=== PATIENT | female | born 1960 | race Caucasian/White ===

== ENCOUNTER 2021-08-17 10:21 | Inpatient (IN) | payer MEDICARE, OTHER ==
[2021-08-17] MEDS ORDERED: Ondansetron PF 4 MG/2 ML Vial ONE ×5 (12:07→16:25)
[2021-08-17] MEDS ORDERED: Morphine 4 MG/ML VIAL ONE ×3 (12:07→15:26)
[2021-08-17 12:12] LABS: Hemoglobin 12.1 g/dL (12.0-16.0); Mean Corpuscular HGB CONC 32.5 g/dL (32.0-36.0); Mean Corpuscular Hemoglobin 30.9 pg (27.0-31.0); Mean Corpuscular Volume 95.1 fL (78.0-98.0); RBC Distribution Width 11.7 % (11.5-14.5); Red Blood Cell (RBC) Count 3.91 mill/uL (4.20-5.40); White Blood Cell (WBC) Count 24.3 thou/uL (4.8-10.8)
[2021-08-17 12:29] LABS: ALT (SGPT) 8 U/L (8-55); AST (SGOT) 15 U/L (5-34); Albumin 3.7 g/dL (3.5-5.0); Alkaline Phosphatase 127 U/L (40-110); Anion Gap 16 mmol/L (10-20); BUN (Urea Nitrogen) 40 mg/dL (9.8-20.1); Bilirubin, Total 0.7 mg/dL (0.2-1.2); Calc. Creatinine Clearance 0 mL/min (70-130); Calcium 9.6 mg/dL (7.8-10.44); Carbon Dioxide 24 mmol/L (22-29); Chloride 102 mmol/L (98-107); Globulin 3.7 g/dL (2.4-3.5); Glucose 77 mg/dL (70-105); Lipase 9 U/L (8-78); Potassium 3.8 mmol/L (3.5-5.1); Protein, Total 7.4 g/dL (6.0-8.3); Sodium 138 mmol/L (136-145)
[2021-08-17 12:36] LABS: Band 19 % (5-11); Lymphocytes 4 % (21-51); MDiff Complete? YES; Mean Platelet Volume 9.5 fL (7.4-10.4); Monocytes 2 % (0-10); Neutrophil 75 % (42-75); Platelet Count 113 thou/uL (130-400); Platelet Morphology Comment Appears Decreased; Polychromasia SLIGHT = 2-3 cells (100X) (0-2/hpf)
[2021-08-17 14:15] LABS: Bilirubin Negative (Negative); Blood, Urine 3+ (Negative); Clarity Turbid (Clear); Glucose, Urine (Dipstick) Normal (Negative); Ketone, Urine Trace mg/dL (Negative); Leukocyte 500 Leu/uL (Negative); Nitrite 1+ (Negative); Protein, Urine (Dipstick) 70 mg/dL (Neg-Trace); RBC/HPF 21-50 HPF (0-3); Specific Gravity, Urine 1.049 (1.002-1.036); Urobilinogen Normal mg/dL (Less than 2); pH, Urine 6.5 (5.0-9.0)
[2021-08-17 14:17] LABS: Bacteria/HPF 4+ HPF (None Seen); WBC/HPF Greater than 50 HPF (0-3)
[2021-08-17] MEDS ORDERED: cefTRIAXone\\ROCEPHIN 1 GM VIAL ONE (15:12)
[2021-08-17] MEDS ORDERED: Lorazepam 2 MG/ML VIAL ONE (15:26)
[2021-08-17] MEDS ORDERED: Iopamidol 15 ML ONE (15:28)
[2021-08-17] MEDS ORDERED: fentaNYL Citrate/PF 100 MCG/2 ML SYRINGE ONE (15:30)
[2021-08-17 16:24] LABS: SARS-CoV-2 NAA Rapid Test Not Detected (NotDetected)
[2021-08-17] MEDS ORDERED: Dexamethasone 20 MG/5 ML VIAL ONE (16:25)
[2021-08-17] MEDS ORDERED: Ketorolac Tromethamine 30 MG/ML VIAL ONE (16:25)
[2021-08-17] MEDS ORDERED: PROPOFOL 200 MG/20 ML VIAL ONE (16:25)
[2021-08-17] MEDS ORDERED: Succinylcholine 200 MG/10 ml SYRINGE FS ONE (16:25)
[2021-08-17] MEDS ORDERED: Lidocaine 1% PF 5 ML VIAL ONE (16:25)
[2021-08-17] MEDS ORDERED: Fentanyl 100 MCG/2 ML VIAL ONE ×3 (16:56→18:49)
[2021-08-17] MEDS ORDERED: cefTRIAXone\\ROCEPHIN 1 GM in Sodium Chloride 0.9% 100 ML IVPB SCH (18:30)
[2021-08-17] MEDS ORDERED: Ondansetron PF 4 MG/2 ML Vial IVP PRN (21:46)
[2021-08-17] MEDS ORDERED: Acetaminophen 325 MG TAB PO PRN (21:46)
[2021-08-17 22:51] LABS: Hemoglobin 11.5 g/dL (12.0-16.0); Mean Corpuscular HGB CONC 32.1 g/dL (32.0-36.0); Mean Corpuscular Hemoglobin 30.9 pg (27.0-31.0); Mean Corpuscular Volume 96.2 fL (78.0-98.0); Mean Platelet Volume 9.6 fL (7.4-10.4); Platelet Count 122 thou/uL (130-400); Red Blood Cell (RBC) Count 3.72 mill/uL (4.20-5.40); White Blood Cell (WBC) Count 19.4 thou/uL (4.8-10.8)
[2021-08-17] MEDS: Sodium Chloride 0.9% 1,000 ML IV SCH (23:07)
[2021-08-17 23:08] LABS: Band 16 % (5-11); Lymphocytes 8 % (21-51); MDiff Complete? YES; Neutrophil 76 % (42-75)
[2021-08-17 23:11] LABS: ALT (SGPT) 7 U/L (8-55); AST (SGOT) 14 U/L (5-34); Albumin 3.6 g/dL (3.5-5.0); Alkaline Phosphatase 131 U/L (40-110); Anion Gap 16 mmol/L (10-20); BUN (Urea Nitrogen) 35 mg/dL (9.8-20.1); Bilirubin, Total 0.3 mg/dL (0.2-1.2); Calc. Creatinine Clearance 36 mL/min (70-130); Calcium 8.8 mg/dL (7.8-10.44); Carbon Dioxide 21 mmol/L (22-29); Chloride 106 mmol/L (98-107); Globulin 3.7 g/dL (2.4-3.5); Glucose 133 mg/dL (70-105); Potassium 3.8 mmol/L (3.5-5.1); Protein, Total 7.3 g/dL (6.0-8.3); Sodium 139 mmol/L (136-145)
[2021-08-17] MEDS: Cefepime 2 GM in Sodium Chloride 0.9% 100 ML IVPB SCH (23:32)
[2021-08-17] MEDS: HYDROcodone/Acetaminophen 5/325 mg Tablet PO PRN (23:42)
[2021-08-17] MEDS ORDERED: VANCOMYCIN 1.25 GM/250 ML BAG 1.25 GM in Premix Bag 1 BAG IVPB SCH (23:59)
[2021-08-18] MEDS: Morphine 2 MG/ML VIAL SLOW IVP PRN ×2 (02:38→13:33)
[2021-08-18] MEDS: HYDROcodone/Acetaminophen 5/325 mg Tablet PO PRN ×2 (05:52→10:31)
[2021-08-18 06:09] LABS: Hemoglobin 10.2 g/dL (12.0-16.0); Mean Corpuscular HGB CONC 32.2 g/dL (32.0-36.0); Mean Corpuscular Hemoglobin 31.3 pg (27.0-31.0); Mean Corpuscular Volume 97.1 fL (78.0-98.0); Mean Platelet Volume 9.9 fL (7.4-10.4); Platelet Count 111 thou/uL (130-400); RBC Distribution Width 12.1 % (11.5-14.5); Red Blood Cell (RBC) Count 3.27 mill/uL (4.20-5.40); White Blood Cell (WBC) Count 14.3 thou/uL (4.8-10.8)
[2021-08-18 06:28] LABS: Anion Gap 13 mmol/L (10-20); BUN (Urea Nitrogen) 35 mg/dL (9.8-20.1); Band 24 % (5-11); Calc. Creatinine Clearance 41 mL/min (70-130); Calcium 8.5 mg/dL (7.8-10.44); Carbon Dioxide 19 mmol/L (22-29); Chloride 109 mmol/L (98-107); Glucose 129 mg/dL (70-105); Lymphocytes 5 % (21-51); MDiff Complete? YES; Monocytes 2 % (0-10); Neutrophil 69 % (42-75); Platelet Morphology Comment Appears Decreased; Potassium 4.2 mmol/L (3.5-5.1); Sodium 137 mmol/L (136-145)
[2021-08-18] MEDS ORDERED: Heparin 5,000 UNITS/ML VIAL SC SCH (09:00)
[2021-08-18] MEDS: Sodium Chloride 0.9% 1,000 ML IV SCH (10:33)
[2021-08-18] MEDS ORDERED: Lidocaine 2% Viscous Solution 20 ML, Aluminum & Magnesium Hydroxide 30 ML, Donnatal Eli... SSW SCH (12:00)
[2021-08-18] MEDS ORDERED: cefTRIAXone\\ROCEPHIN 2 GM in Sodium Chloride 0.9% 100 ML IVPB SCH (15:00)
[2021-08-18] MEDS: HYDROcodone/Acetaminophen 10/325 mg Tablet PO PRN ×2 (15:57→20:39)
[2021-08-18] MEDS ORDERED: clonazePAM 0.5 MG TAB PO PRN (19:14)
[2021-08-18] MEDS: Atorvastatin Calcium 40 MG TAB PO SCH (20:40)
[2021-08-18] MEDS ORDERED: clonazePAM 0.5 MG TAB PO SCH (21:00)
[2021-08-18] MEDS ORDERED: Vancomycin HCl 1 GM in Sodium Chloride 0.9% 250 ML 300 ML IVPB SCH (23:59)
[2021-08-18] MEDS ORDERED: Vancomycin 1 GM in Premix Bag 1 BAG IVPB SCH (23:59)
[2021-08-19] MEDS: Morphine 2 MG/ML VIAL SLOW IVP PRN ×4 (00:11→20:34)
[2021-08-19] MEDS: Cefepime 2 GM in Sodium Chloride 0.9% 100 ML IVPB SCH (00:11)
[2021-08-19] MEDS: Sodium Chloride 0.9% 1,000 ML IV SCH ×3 (00:18→13:25)
[2021-08-19] MEDS: HYDROcodone/Acetaminophen 10/325 mg Tablet PO PRN ×4 (03:59→22:27)
[2021-08-19 06:27] LABS: Anion Gap 13 mmol/L (10-20); BUN (Urea Nitrogen) 28 mg/dL (9.8-20.1); Calc. Creatinine Clearance 49 mL/min (70-130); Calcium 8.4 mg/dL (7.8-10.44); Carbon Dioxide 20 mmol/L (22-29); Chloride 110 mmol/L (98-107); Glucose 84 mg/dL (70-105); Potassium 3.2 mmol/L (3.5-5.1); Sodium 140 mmol/L (136-145)
[2021-08-19 06:51] LABS: Band 14 % (5-11); Hemoglobin 10.6 g/dL (12.0-16.0); Lymphocytes 14 % (21-51); MDiff Complete? YES; Mean Corpuscular HGB CONC 32.2 g/dL (32.0-36.0); Mean Corpuscular Volume 96.3 fL (78.0-98.0); Mean Platelet Volume 9.8 fL (7.4-10.4); Monocytes 11 % (0-10); Neutrophil 61 % (42-75); Platelet Count 139 thou/uL (130-400); Platelet Morphology Comment Appears Adequate; RBC Distribution Width 12.3 % (11.5-14.5); Red Blood Cell (RBC) Count 3.43 mill/uL (4.20-5.40); White Blood Cell (WBC) Count 9.2 thou/uL (4.8-10.8)
[2021-08-19] MEDS ORDERED: Potassium Chloride 20 MEQ TAB PO SCH (08:30)
[2021-08-19 08:36] LABS: Magnesium 1.7 mg/dL (1.6-2.6)
[2021-08-19] MEDS ORDERED: Magnesium 2 GM/50 ML(in water) 2 GM in Premix Bag 1 BAG IVPB SCH (10:45)
[2021-08-19] MEDS ORDERED: Diphenoxylate HCl/Atropine Tablet PO PRN (11:17)
[2021-08-19] MEDS ORDERED: Diphenoxylate HCl/Atropine Tablet PO SCH (12:00)
[2021-08-19] MEDS: cefTRIAXone\\ROCEPHIN 2 GM in Sodium Chloride 0.9% 100 ML IVPB SCH (13:23)
[2021-08-19] MEDS: Diphenoxylate HCl/Atropine Tablet PO SCH ×2 (14:09→20:33)
[2021-08-19] MEDS: Phenazopyridine HCl 100 MG TAB PO SCH (18:03)
[2021-08-19] MEDS: Atorvastatin Calcium 40 MG TAB PO SCH (20:34)
[2021-08-20] MEDS: HYDROcodone/Acetaminophen 10/325 mg Tablet PO PRN ×4 (04:17→18:18)
[2021-08-20] MEDS: Sodium Chloride 0.9% 1,000 ML IV SCH (06:28)
[2021-08-20 06:40] LABS: Hemoglobin 10.2 g/dL (12.0-16.0); Mean Corpuscular HGB CONC 32.2 g/dL (32.0-36.0); Mean Platelet Volume 9.6 fL (7.4-10.4); Platelet Count 160 thou/uL (130-400); RBC Distribution Width 12.2 % (11.5-14.5); Red Blood Cell (RBC) Count 3.28 mill/uL (4.20-5.40); White Blood Cell (WBC) Count 8.1 thou/uL (4.8-10.8)
[2021-08-20 06:47] LABS: Anion Gap 10 mmol/L (10-20); BUN (Urea Nitrogen) 13 mg/dL (9.8-20.1); Calc. Creatinine Clearance 64 mL/min (70-130); Calcium 8.1 mg/dL (7.8-10.44); Carbon Dioxide 25 mmol/L (22-29); Chloride 109 mmol/L (98-107); Glucose 99 mg/dL (70-105); Potassium 3.1 mmol/L (3.5-5.1); Sodium 141 mmol/L (136-145)
[2021-08-20 07:00] LABS: Band 10 % (5-11); Lymphocytes 29 % (21-51); MDiff Complete? YES; Metamyelocyte 4 % (0-0); Monocytes 9 % (0-10); Myelocyte 2 % (0-0); Neutrophil 44 % (42-75); Reactive Lymphocytes 2 % (0-10)
[2021-08-20] MEDS ORDERED: Potassium Chloride 20 MEQ TAB PO SCH ×2 (08:15→17:00)
[2021-08-20] MEDS: Phenazopyridine HCl 100 MG TAB PO SCH ×3 (08:59→18:16)
[2021-08-20] MEDS: Estradiol 1 MG TAB PO SCH (09:00)
[2021-08-20] MEDS: Saccharomyces boulardii 250 MG CAP PO SCH (09:00)
[2021-08-20] MEDS: Diphenoxylate HCl/Atropine Tablet PO SCH ×3 (09:01→21:41)
[2021-08-20] MEDS: Morphine 2 MG/ML VIAL SLOW IVP PRN ×2 (09:16→21:40)
[2021-08-20] MEDS: cefTRIAXone\\ROCEPHIN 2 GM in Sodium Chloride 0.9% 100 ML IVPB SCH (12:13)
[2021-08-20] MEDS: Sulfameth/Trimethoprim DS 800-160mg TAB PO SCH (21:41)
[2021-08-20] MEDS: Atorvastatin Calcium 40 MG TAB PO SCH (21:42)
[2021-08-21] MEDS: HYDROcodone/Acetaminophen 10/325 mg Tablet PO PRN ×3 (00:40→13:39)
[2021-08-21] MEDS: Sodium Chloride 0.9% 1,000 ML IV SCH (03:23)
[2021-08-21 07:05] LABS: Potassium 3.4 mmol/L (3.5-5.1)
[2021-08-21] MEDS: Diphenoxylate HCl/Atropine Tablet PO SCH (09:14)
[2021-08-21] MEDS: Phenazopyridine HCl 100 MG TAB PO SCH ×2 (09:19→13:37)
[2021-08-21] MEDS: Saccharomyces boulardii 250 MG CAP PO SCH (09:19)
[2021-08-21] MEDS: Sulfameth/Trimethoprim DS 800-160mg TAB PO SCH (09:19)
[2021-08-21] MEDS: Estradiol 1 MG TAB PO SCH (09:19)
[2021-08-21] MEDS: Morphine 2 MG/ML VIAL SLOW IVP PRN (09:25)
[2021-08-21] MEDS ORDERED: Potassium Chloride 20 MEQ TAB PO SCH (09:45)
[2021-08-21 11:31] VITALS: BMI 21.6
[2021-08-21 13:51] VITALS: BP 130/72; TEMP 98.7
== END 2021-08-21 13:30 | disposition home or self-care (01) | DRG 854 ==
LOC: ERS 10:21 → SDC 15:45 → SURG A 15:56
PROVIDERS: ADMIT Internal Medicine; ATTEND Internal Medicine
PROC: 0T778DZ Dilation of Left Ureter with Intraluminal Device, Via Natural or Artificial Opening Endoscopic (ICD-10-PCS; principal; 2021-08-17)
PROC: BT1FZZZ Fluoroscopy of Left Kidney, Ureter and Bladder (ICD-10-PCS; 2021-08-17)
PROC: 3E03329 Introduction of Other Anti-infective into Peripheral Vein, Percutaneous Approach (ICD-10-PCS; 2021-08-17)
DX: A41.51 Sepsis due to Escherichia coli [E. coli] (principal); N13.6 Pyonephrosis; N17.9 Acute kidney failure, unspecified; Z20.822 Contact with and (suspected) exposure to COVID-19; R65.20 Severe sepsis without septic shock; F17.210 Nicotine dependence, cigarettes, uncomplicated; E78.5 Hyperlipidemia, unspecified; K21.9 Gastro-esophageal reflux disease without esophagitis; F41.9 Anxiety disorder, unspecified; N18.2 Chronic kidney disease, stage 2 (mild); D53.9 Nutritional anemia, unspecified; E83.42 Hypomagnesemia; E87.6 Hypokalemia
CPT/HCPCS: 36415; 74177; 74420; 80048; 80053; 81003; 81015; 83605; 83690; 83735; 84132; 85025; 87040; 87077; 87086; 87149; 87186; 94760; 96365; 96375; 96376; C2617; J0692; J0696; J1100; J1644; J1885; J2060; J2270; J2405; J2704; J3010; J3370; J3475; J3490; J7050; Q9967; U0002

== ENCOUNTER 2021-08-24 09:53 | Outpatient (CLI) | payer MEDICARE, OTHER ==
[2021-08-24 11:03] LABS: Clarity Slightly Cloudy (Clear)
[2021-08-24 11:04] LABS: Bilirubin Unable to Interpret (Negative); Glucose, Urine (Dipstick) Unable to Interpret mg/dL (Negative); Ketone, Urine Unable to Interpret mg/dL (Negative); Leukocyte Unable to Interpret (Negative); Nitrite Unable to Interpret (Negative); Protein, Urine (Dipstick) Unable to Interpret mg/dl (Neg-Trace); Urobilinogen UNABLE TO INTERPRET mg/dL (Less than 2)
[2021-08-24 11:05] LABS: Blood, Urine Unable to Interpret (Negative)
[2021-08-24 11:24] LABS: Bacteria/HPF 2+ HPF (None Seen); RBC/HPF Greater than 50 HPF (0-3); WBC/HPF Greater than 50 HPF (0-3)
[2021-08-24 18:14] LABS: SARS-CoV-2 PCR by NAA Not Detected (NotDetected)
== END 2021-08-24 09:54 | disposition home or self-care (01) ==
LOC: LABBT 09:53
PROVIDERS: ATTEND Urology
DX: Z01.818 Encounter for other preprocedural examination (principal); N20.1 Calculus of ureter; Z20.822 Contact with and (suspected) exposure to COVID-19
CPT/HCPCS: 81001; 87086; 93005; U0003; U0005; 93010

== ENCOUNTER 2021-08-28 15:24 | Emergency (ER) | payer MEDICARE, OTHER ==
[2021-08-28 16:03] LABS: #Lymphocytes 1.7 thou/uL (1.20-3.40); #Monocytes 0.5 thou/uL (0.11-0.59); #Neutrophils 3.5 thou/uL (1.40-6.50); %Basophils 0.7 % (0.0-1.0); %Eosinophils 0.6 % (0.0-10.0); %Lymphocytes 29.4 % (21.0-51.0); %Monocytes 9.4 % (0.0-10.0); %Neutrophils 59.9 % (42.0-75.0); Hemoglobin 11.8 g/dL (12.0-16.0); Mean Corpuscular HGB CONC 32.5 g/dL (32.0-36.0); Mean Corpuscular Hemoglobin 30.4 pg (27.0-31.0); Mean Corpuscular Volume 93.6 fL (78.0-98.0); Mean Platelet Volume 7.3 fL (7.4-10.4); Platelet Count 744 thou/uL (130-400); RBC Distribution Width 11.6 % (11.5-14.5); Red Blood Cell (RBC) Count 3.87 mill/uL (4.20-5.40); White Blood Cell (WBC) Count 5.8 thou/uL (4.8-10.8)
[2021-08-28 16:04] LABS: Bilirubin Negative (Negative); Blood, Urine 3+ (Negative); Clarity Turbid (Clear); Glucose, Urine (Dipstick) Normal (Negative); Ketone, Urine Negative (Negative); Leukocyte 250 Leu/uL (Negative); Nitrite Negative (Negative); Protein, Urine (Dipstick) 100 mg/dL (Neg-Trace); RBC/HPF 21-50 HPF (0-3); Specific Gravity, Urine 1.017 (1.002-1.036); Urobilinogen Normal mg/dL (Less than 2)
[2021-08-28 16:11] LABS: Bacteria/HPF 1+ HPF (None Seen)
[2021-08-28 16:23] LABS: ALT (SGPT) 10 U/L (8-55); AST (SGOT) 15 U/L (5-34); Albumin 4.4 g/dL (3.5-5.0); Alkaline Phosphatase 130 U/L (40-110); Anion Gap 16 mmol/L (10-20); BUN (Urea Nitrogen) 19 mg/dL (9.8-20.1); Bilirubin, Total 0.4 mg/dL (0.2-1.2); Calc. Creatinine Clearance 0 mL/min (70-130); Calcium 9.9 mg/dL (7.8-10.44); Carbon Dioxide 21 mmol/L (22-29); Chloride 102 mmol/L (98-107); Globulin 4.3 g/dL (2.4-3.5); Glucose 118 mg/dL (70-105); Potassium 4.4 mmol/L (3.5-5.1); Protein, Total 8.7 g/dL (6.0-8.3); Sodium 135 mmol/L (136-145)
[2021-08-28] MEDS ORDERED: Morphine 4 MG/ML VIAL ONE ×2 (19:18→21:11)
[2021-08-28] MEDS ORDERED: Ondansetron PF 4 MG/2 ML Vial ONE (19:18)
== END 2021-08-28 22:11 | disposition home or self-care (01) ==
LOC: ERS 15:24
DX: N20.1 Calculus of ureter (principal)
CPT/HCPCS: 36415; 74176; 80053; 81003; 81015; 85025; 87086; 96374; 96375; 96376; J2270; J2405

== ENCOUNTER 2021-09-07 13:58 | Outpatient (CLI) | payer MEDICARE, OTHER | END 2021-09-07 13:59 | disposition home or self-care (01) | LOC: LABBT 13:58 | PROVIDERS: ATTEND Urology | DX: N20.1 Calculus of ureter (principal); Z20.822 Contact with and (suspected) exposure to COVID-19 | CPT/HCPCS: U0003; U0005 ==

== ENCOUNTER 2021-09-08 10:31 | Day surgery (SDC) | payer MEDICARE, OTHER ==
[2021-09-07 09:41] VITALS: BMI 20.9
[2021-09-08] MEDS ORDERED: Levofloxacin 500 mg/D5W 100 ml Premix Bag ONE (12:22)
[2021-09-08] MEDS ORDERED: Midazolam HCl 2 mg/2 ml Vial ONE (12:25)
[2021-09-08] MEDS ORDERED: fentaNYL Citrate/PF 100 MCG/2 ML SYRINGE ONE (12:25)
[2021-09-08] MEDS ORDERED: Lidocaine 1% PF 5 ML VIAL ONE (12:37)
[2021-09-08] MEDS ORDERED: PROPOFOL 200 MG/20 ML VIAL ONE (12:37)
[2021-09-08] MEDS ORDERED: Fentanyl 100 MCG/2 ML VIAL ONE ×2 (13:31→14:43)
[2021-09-08] MEDS ORDERED: HYDROmorphone 0.5 MG/0.5 ML SYRINGE ONE ×2 (14:09→14:30)
[2021-09-08] MEDS ORDERED: Ketorolac Tromethamine 30 MG/ML VIAL ONE (14:13)
[2021-09-08] MEDS ORDERED: Phenazopyridine HCl 100 MG TAB ONE (14:13)
[2021-09-08] MEDS ORDERED: Oxybutynin 5 MG TAB ONE (14:14)
== END 2021-09-08 16:59 | disposition home or self-care (01) ==
LOC: SDC 10:31
PROVIDERS: ATTEND Urology
PROC: 0TC48ZZ Extirpation of Matter from Left Kidney Pelvis, Via Natural or Artificial Opening Endoscopic (ICD-10-PCS; principal; 2021-09-08)
PROC: 0TC78ZZ Extirpation of Matter from Left Ureter, Via Natural or Artificial Opening Endoscopic (ICD-10-PCS; 2021-09-08)
PROC: 0T778DZ Dilation of Left Ureter with Intraluminal Device, Via Natural or Artificial Opening Endoscopic (ICD-10-PCS; 2021-09-08)
DX: N20.2 Calculus of kidney with calculus of ureter (principal); Z79.899 Other long term (current) drug therapy
CPT/HCPCS: 52356; 74420; 82365; C2617; 88300; J1170; J1885; J1956; J2250; J2704; J3010

== ENCOUNTER 2024-11-11 06:28 | Day surgery (SDC) | payer OTHER, MEDICAID ==
[2024-11-03 12:38] VITALS: BMI 24.2
[2024-11-11] MEDS ORDERED: LevoFLOXacin D5W 500 mg (100 mL) BAG ONE (06:43)
[2024-11-11] MEDS ORDERED: PROPOFOL 20 ML ONE (06:56)
[2024-11-11] MEDS ORDERED: fentaNYL PF 100 MCG/2 ML SYRINGE ONE (06:56)
[2024-11-11] MEDS ORDERED: Rocuronium Bromide 10 MG/ML (10ML VIAL) ONE (06:56)
[2024-11-11] MEDS ORDERED: Lidocaine 1% PF 5 ML VIAL ONE (06:56)
[2024-11-11] MEDS ORDERED: Ondansetron PF 4 MG/2 ML Vial ONE (06:57)
[2024-11-11] MEDS ORDERED: Oxybutynin 5 MG TAB ONE (09:18)
[2024-11-11] MEDS ORDERED: Ketorolac Tromethamine 30 MG (1 mL) VIAL ONE (09:19)
[2024-11-11] MEDS ORDERED: Glycopyrrolate 0.2 MG/ML 5 ML SYRINGE ONE (09:19)
[2024-11-11] MEDS ORDERED: SUGAMMADEX SODIUM 200 MG/2 ML VIAL ONE (09:19)
[2024-11-11] MEDS ORDERED: PHENYLEPHRINE-NS 100 MCG/ML 10 ML SYRINGE ONE (09:19)
== END 2024-11-11 11:20 | disposition home or self-care (01) ==
LOC: SDC 06:28
PROVIDERS: ATTEND Urology
PROC: 0TC18ZZ Extirpation of Matter from Left Kidney, Via Natural or Artificial Opening Endoscopic (ICD-10-PCS; principal; 2024-11-11)
PROC: 0T778DZ Dilation of Left Ureter with Intraluminal Device, Via Natural or Artificial Opening Endoscopic (ICD-10-PCS; 2024-11-11)
DX: N20.0 Calculus of kidney (principal); I10 Essential (primary) hypertension; E78.5 Hyperlipidemia, unspecified; Z96.642 Presence of left artificial hip joint; Z87.891 Personal history of nicotine dependence; Z90.710 Acquired absence of both cervix and uterus; Z90.49 Acquired absence of other specified parts of digestive tract; Z98.890 Other specified postprocedural states; Z88.8 Allergy status to other drugs, medicaments and biological substances; Z79.899 Other long term (current) drug therapy
CPT/HCPCS: 52332; C9761; 74018; 74420; 82365; 88300; C1747; C1758; C1769; C2617; J1100; J1885; J1956; J2405; J2550; J2704; J3010